=== PATIENT | female | born 1935 | race Caucasian/White ===

== ENCOUNTER 2019-05-16 13:54 | Inpatient (IN) | payer OTHER ==
[2019-05-16] VITALS (26 sets, daily range): BP systolic 81–107; BP diastolic 33–57
[~2019-05-16] VITALS: Ht 154.9 cm; Wt 60.0 kg
[2019-05-16] MEDS ORDERED: FUROSEMIDE 40 MG/4 ML VIAL IV ONE (14:30)
[2019-05-16 14:34] LABS: Basophils # (auto) 0.1 uL; Eosinophils # (auto) 0 uL; Hematocrit 15.3 % (36.0-46.0); Lymphocytes # (auto) 0.5 uL; Lymphocytes % (auto) 5.1 % (10.0-50.0); Mean Corpuscular Volume 98.8 fL (80.0-100.0); Red Blood Cells 1.55 10^6/uL (4.0-5.20)
[2019-05-16 14:36] LABS: Basophils % (auto) 1.3 % (0.0-2.0); Eosinophils % (auto) 0.4 % (0.0-7.0); Mean Corpuscular Hemoglobin 32.8 pg (28.0-32.0); Mean Corpuscular Hgb Conc. 33.2 g/dL (32.0-36.0); Monocytes # (auto) 0.7 uL; Monocytes % (auto) 7.4 % (0.0-12.0); Neutrophils % (auto) 85.8 % (37.0-80.0); Nucleated Red Blood Cells % 0.1 %; Platelet Count (auto) 112 10^3/uL (140-450); Red Cell Distribution Width 17.9 % (11.8-14.3); White Blood Cell 9.3 10^3/uL (4.4-10.8)
[2019-05-16 14:51] LABS: Albumin 1.7 g/dL (3.4-5.0); BUN/Creatinine Ratio 15.1; Calcium 6.7 mg/dL (8.5-10.1); Potassium 3.9 mmol/L (3.5-5.1)
[2019-05-16 14:55] LABS: Bilirubin, Total 1.3 mg/dL (0.2-1.0); Total Protein 5.2 g/dL (6.4-8.2)
[2019-05-16] MEDS ORDERED: SODIUM CHLORIDE 0.9% 250 ML IV ONE (15:00)
[2019-05-16 15:04] LABS: Hemoglobin 5.1 g/dL (12.2-16.2)
[2019-05-16] MEDS ORDERED: PANTOPRAZOLE 40 MG/10 ML VIAL INJ IV ONE (15:15)
[2019-05-16] MEDS ORDERED: FURO1TAB33 PO (15:58)
[2019-05-16] MEDS ORDERED: LISI2.5T47 PO (15:58)
[2019-05-16] MEDS ORDERED: ROSU5TAB5 PO (15:58)
[2019-05-16] MEDS ORDERED: DIGO0.1262 PO (15:58)
[2019-05-16] MEDS ORDERED: FERR27TA2 PO (15:58)
[2019-05-16] MEDS ORDERED: CARV3.1240 PO (15:58)
[2019-05-16 16:08] LABS: Lactic Acid w/Reflex 3.8 mmol/L (0.4-2.0)
[2019-05-16] MEDS ORDERED: traMADol HCL 50 MG TAB PO PRN (16:15)
[2019-05-16] MEDS ORDERED: ONDANSETRON HCL 4 MG/2 ML VIAL IV PRN (16:15)
[2019-05-16] MEDS ORDERED: MORPHINE SULF INJ 2 MG/ML SYRINGE 1ML IV PRN (16:15)
[2019-05-16] MEDS ORDERED: NITROGLYCERIN 0.4 MG SL TAB SL PRN (16:15)
[2019-05-16] MEDS ORDERED: ACETAMINOPHEN 500 MG TAB PO PRN (16:15)
[2019-05-16 16:49] LABS: INR 1.46 (0.9-1.15); Partial Thromboplastin Time 33.1 sec (23.64-32.05)
[2019-05-16 17:00] LABS: CRP High Sensitivity 1.03 mg/dL (< 0.3)
[2019-05-16] MEDS: NOREPINEPHRINE 8 MG/250ML KIT 250 ML IV SCH (17:01)
--- NOTE | 2019-05-16 17:30 | NUR ---
Pt being admitted to ICU CAROLINE MONTGOMERY admitted to ICU via gurney on nurse monitoring, and portable 02. Patient transfered to bed, connected to ICU monitoring and oxygen AT 2L PER NC, and weighed by bedscale. Patient oriented to Shivani au RN, unit, room, bed, and unit policies regarding patient care and visiting hours. All questions and concerns addressed, patient verbalized understanding. NOTE:
--- NOTE | 2019-05-16 18:30 | NUR ---
MULTIPLE UNSUCCESSFUL ATTEMPTS TO START PERIPHERAL IV'S FOR BLOOD TRANSFUSION. ER CALLED - STATES WILL COME AND START EJ IV LINE. PATIENT'S DAUGHTERS AT BEDSIDE - INFORMED OF ABOVE - VERBALIZED UNDERSTANDING.
--- NOTE | 2019-05-16 19:00 | NUR ---
REPORT GIVEN TO PRASHANT CAPELLAN.
[2019-05-16 19:04] LABS: Hematocrit 15.8 % (36.0-46.0)
[2019-05-16 19:15] LABS: Hemoglobin 5.2 g/dL (12.2-16.2)
--- NOTE | 2019-05-16 19:33 | NUR ---
INITIAL CONTACT ASSUMED CARE OF PATIENT PATIENT APPEARS TO BE RESTING IN BED COMFORTABLY IN SUPINE POSITION AT THIS TIME. AAOX4, VITAL SIGNS SHOW HYPOTENSION AT THIS TIME, PATIENT IS ON LEVOPHED. SEE IV SPREADSHEET FOR MEDICATIONS AND TITRATION. NO S/S OF DISTRESS NOTED. PATIENT DENIES PAIN AT THIS TIME. SKIN INTACT. 2 L O2 VIA NASAL CANNULA, PATIENT O2 SAT 100%. ER NURSES AT BEDSIDE FOR EJ PLACEMENT. 20 G IV LEFT A/C PATENT, SKIN INTACT. PLAN OF CARE DISCUSSED WITH PATIENT, PATIENT VERBALIZED UNDERSTANDING, SAFETY MAINTAINED, WILL CONTINUE TO MONITOR.
--- NOTE | 2019-05-16 20:15 | NUR ---
FAMILY AT BEDSIDE
--- NOTE | 2019-05-16 21:20 | NUR ---
COHU CATHETER INSERTION 16 F CHOU CATHETER SUCCESSFULLY INSERTED 35 CC URINE OUTPUT, STRAW COLORED, CLOUDY, SEDIMENTS, 35 CC URINE OUT PUT
--- NOTE | 2019-05-16 21:40 | NUR ---
URINE SAMPLE SENT TO LAB
[2019-05-16] MEDS: ATORVASTATIN 20 MG TAB PO SCH (22:45)
[2019-05-16] MEDS: CEFOTETAN 1GM/D5W 50ML BAG 50 ML IV SCH (22:45)
[2019-05-16] MEDS: PANTOPRAZOLE 40 MG TAB PO SCH (22:45)
--- NOTE | 2019-05-16 23:00 | NUR ---
rounding Patient resting in bed in supine position satting 100% on 2L O2. no S/S of distress noted. will continue to monitor
[2019-05-17] VITALS (93 sets, daily range): BP systolic 71–141; BP diastolic 35–88
--- NOTE | 2019-05-17 | NUR ---
Patient Refused Bath Patient resting at this time, refusing bath communicates that she would rather take the time to sleep
[2019-05-17 01:00] LABS: Hemoglobin 8.2 g/dL (12.2-16.2)
[2019-05-17 01:02] LABS: Hematocrit 24.5 % (36.0-46.0)
[2019-05-17] MEDS: DOPamine 1600MCG/ML D5W 250 ML IV SCH (02:00)
[2019-05-17 04:29] LABS: Basophils # (auto) 0 uL; Basophils % (auto) 0.1 % (0.0-2.0); Eosinophils # (auto) 0.1 uL; Eosinophils % (auto) 0.3 % (0.0-7.0); Hematocrit 24.3 % (36.0-46.0); Hemoglobin 8.1 g/dL (12.2-16.2); Lymphocytes # (auto) 0.9 uL; Mean Corpuscular Hemoglobin 31.4 pg (28.0-32.0); Mean Corpuscular Hgb Conc. 33.2 g/dL (32.0-36.0); Mean Corpuscular Volume 94.7 fL (80.0-100.0); Monocytes # (auto) 1.4 uL; Monocytes % (auto) 7.6 % (0.0-12.0); Neutrophils # (auto) 15.9 uL; Platelet Count (auto) 135 10^3/uL (140-450); Red Blood Cells 2.56 10^6/uL (4.0-5.20); Red Cell Distribution Width 16.2 % (11.8-14.3); White Blood Cell 18.2 10^3/uL (4.4-10.8)
[2019-05-17 04:42] LABS: Albumin 2.1 g/dL (3.4-5.0); Calcium 6.7 mg/dL (8.5-10.1); Potassium 4.1 mmol/L (3.5-5.1)
[2019-05-17 04:45] LABS: Bilirubin, Total 2.5 mg/dL (0.2-1.0); Total Protein 5.8 g/dL (6.4-8.2)
[2019-05-17] MEDS: CEFOTETAN 1GM/D5W 50ML BAG 50 ML IV SCH (06:53)
[2019-05-17] MEDS: NOREPINEPHRINE 8 MG/250ML KIT 250 ML IV SCH (06:54)
--- NOTE | 2019-05-17 08:30 | NUR ---
PATIENT'S DAUGHTER AT BEDSIDE - UPDATED ON PATIENT CONDITION THROUGHOUT HS - VERBALIZED UNDERSTANDING.
--- NOTE | 2019-05-17 09:15 | NUR ---
LAB STATES HAS NO UA - ANOTHER UA SENT TO LAB
[2019-05-17 09:45] LABS: Urine Amorphous Crystal FEW /hpf (None Seen); Urine Bacteria FEW /hpf (None Seen); Urine Blood 2+ /uL (Negative); Urine Hyaline Cast MOD /lpf (0 - 2); Urine Specific Gravity 1.008 (1.001-1.035); Urine WBC 3 /hpf (0 - 5)
[2019-05-17] MEDS: PANTOPRAZOLE 40 MG TAB PO SCH (09:56)
[2019-05-17] MEDS: FUROSEMIDE 40 MG/4 ML VIAL IV SCH (09:56)
[2019-05-17] MEDS: DIGOXIN 0.125 MG TAB PO SCH (09:57)
--- NOTE | 2019-05-17 10:20 | NUR ---
DR Joaquin COOMBS RETURNS CALL RE: CONSULT - GIVEN PATIENT ALL INFO AND CURRENT CONDITION - ORDERS RECEIVED.
--- NOTE | 2019-05-17 10:30 | NUR ---
CONSENTS FOR EGD ET MOD SEDATION SIGNED PER PATIENT. Signed: 05/17/19 at 1206 by Shivani Mansfield RN
--- NOTE | 2019-05-17 11:50 | NUR ---
DR GROSS NOTIFIED OF GRAM WALTER RODS IN BLOOD CULTURE, WBC 18.2 - STATES WILL COME SEE PATIENT IN APPROX 30 MIN.
[2019-05-17] MEDS ORDERED: VANCOMYCIN 1GM/250ML 250 ML IV ONE (12:45)
[2019-05-17] MEDS ORDERED: cefTRIAXone 1GM/50ML D5W 50 ML IV ONE (12:45)
[2019-05-17] MEDS ORDERED: VANCOMYCIN PER PHARMACY 0 MG IV SCH (12:45)
--- NOTE | 2019-05-17 13:01 | NUR ---
DR GROSS VISITS ET EXAMINEES PATIENT - NEW ORDERS RECEIVED.
[2019-05-17] MEDS ORDERED: LIDOCAINE 1% (LOCAL ANESTH.) PF 5ml SDV ID ONE (15:45)
--- NOTE | 2019-05-17 16:00 | NUR ---
DR PATEL VISITS - AEROSPACE MEDICINE PHYSICIAN INFORMED HIM OF PATIENT CONDITION AND NEED FOR CARDIAC CLEARANCE FOR EGD SCHEDULED FOR TOMORROW.
[2019-05-17 16:12] LABS: Hematocrit 22.9 % (36.0-46.0); Hemoglobin 7.7 g/dL (12.2-16.2)
--- NOTE | 2019-05-17 16:26 | NUR ---
PICC line placement Patient/Patient significant other educated on need for PICC line placement. All risks and benefits explained and all questions and concerns addressed prior to procedure. Noted past medical history and allergies with no contraindications. INR and Plt counts within acceptable range. 6 fr PICC line inserted via right basilic vein using [employer] US and Tip Location System. Sterile technique with maximum barrier precautions utilized. Blood return obtained from each of triple lumens and each flushed easily with NS using proper technique. PICC secured with Stat-lock; biodisc and occlusive dressing applied. Stat portable chest x-ray obtained for PICC tip placement. *Baseline Arm Circumference 24.
--- NOTE | 2019-05-17 16:29 | NUR ---
OK to use PICC line Xray completed. OK to use PICC line by Dr Mancuso.
--- NOTE | 2019-05-17 16:50 | NUR ---
RT ARM PICC LINE WITH MILD BLEEDING NOTED AT SITE AND UNDER DRESSING - NAUTICAL INSTRUMENT MECHANIC -REINFORCED DRESSING, ELEVATED EXTREMITY ON PILLOW ET 1 LITER IV BAG APPLIED FOR PRESSURE, WILL CONTINUE TO MONITOR.
--- NOTE | 2019-05-17 17:45 | NUR ---
NO FURTHER BLEEDING NOTED AT PICC LINE SITE - LITER IVF ACTING SAND BAG REMOVED. - WILL CONTINUE TO MONITOR.
--- NOTE | 2019-05-17 19:37 | NUR ---
INITIAL CONTACT ASSUMED CARE OF PATIENT PATIENT APPEARS TO BE RESTING IN BED COMFORTABLY IN SEMI-FOWLERS POSITION EATING DINNER AT THIS TIME. AAOX4, VITAL SIGNS WITHIN NORMAL LIMITS. NO S/S OF DISTRESS NOTED. PATIENT DENIES PAIN AT THIS TIME. CHOU CATHETER IN TACT AND DRAINING TO GRAVITY. CENTRAL LINE RIGHT IJ INTACT, ALL PORTS FLUSHABLE, NO S/S OF INFILTRATION OR PHLEBITIS. 2 L O2 VIA NASAL CANNULA SATING 100%. PLAN OF CARE DISCUSSED WITH PATIENT, PATIENT VERBALIZED UNDERSTANDING. SAFETY MAINTAINED, WILL CONTINUE TO MONITOR
--- NOTE | 2019-05-17 20:20 | NUR ---
NO VISITORS IN LOBBY FOR PATIENT AT THIS TIME
--- NOTE | 2019-05-17 21:32 | NUR ---
Patient Refused Bath Patient resting at this time, refusing bath communicates that she would rather take the time to sleep
--- NOTE | 2019-05-17 21:38 | NUR ---
[facility] CALLED 2 UNITS PRBC'S AVAILABLE
[2019-05-17] MEDS: PANTOPRAZOLE 40 MG/10 ML VIAL INJ IV SCH (22:00)
[2019-05-17] MEDS: SODIUM CHLOR 0.9% PF (SALINE LOCK) 10ML VIAL/SYR IV SCH (22:05)
[2019-05-17] MEDS: ATORVASTATIN 20 MG TAB PO SCH (22:35)
[2019-05-18] VITALS (94 sets, daily range): BP systolic 77–147; BP diastolic 30–92
[2019-05-18] MEDS: DOPamine 1600MCG/ML D5W 250 ML IV SCH ×2 (01:04→10:56)
--- NOTE | 2019-05-18 04:00 | NUR ---
[facility] [employer] SECOND UNIT OF PRBC'S STARTED 0115 TRANSFUSED AT THIS TIME (0400), NO S/S OF DISTRESS NOTED, PATIENT TOLERATED WELL UNABLE TRO DOCUMENT ON BLOOD TRANSFUSION SPREADSHEET
[2019-05-18 04:06] LABS: Basophils # (auto) 0 uL; Basophils % (auto) 0.3 % (0.0-2.0); Eosinophils # (auto) 0.3 uL; Eosinophils % (auto) 2.3 % (0.0-7.0); Hematocrit 28.6 % (36.0-46.0); Hemoglobin 9.9 g/dL (12.2-16.2); Lymphocytes # (auto) 1.2 uL; Lymphocytes % (auto) 8.6 % (10.0-50.0); Mean Corpuscular Hemoglobin 31.4 pg (28.0-32.0); Mean Corpuscular Hgb Conc. 34.7 g/dL (32.0-36.0); Mean Corpuscular Volume 90.4 fL (80.0-100.0); Monocytes # (auto) 1.4 uL; Monocytes % (auto) 10.1 % (0.0-12.0); Neutrophils # (auto) 10.9 uL; Neutrophils % (auto) 78.7 % (37.0-80.0); Platelet Count (auto) 117 10^3/uL (140-450); Red Blood Cells 3.17 10^6/uL (4.0-5.20); White Blood Cell 13.8 10^3/uL (4.4-10.8)
[2019-05-18 04:45] LABS: Potassium 3.6 mmol/L (3.5-5.1)
[2019-05-18 04:54] LABS: Albumin 1.9 g/dL (3.4-5.0); BUN/Creatinine Ratio 16.4; Bilirubin, Total 2.6 mg/dL (0.2-1.0); Calcium 6.6 mg/dL (8.5-10.1); Total Protein 5.7 g/dL (6.4-8.2)
[2019-05-18] MEDS: NOREPINEPHRINE 8 MG/250ML KIT 250 ML IV SCH (06:00)
--- NOTE | 2019-05-18 07:30 | NUR ---
RECEIVED REPORT FROM PRASHANT - ASSUMED CARE OF PATIENT.
--- NOTE | 2019-05-18 07:46 | NUR ---
DR GROSS VISITS - NO NEW ORDERS RECEIVED.
[2019-05-18] MEDS: cefTRIAXone 1GM/50ML D5W 50 ML IV SCH (09:28)
--- NOTE | 2019-05-18 09:56 | NUR ---
I faxed clinical information to [facility] including today's MD progress notes, current xrays, labs, vitals and medication list.
--- NOTE | 2019-05-18 10:15 | NUR ---
DR BORDEN NOTIFIED OF GI CONSULT - UPDATED ON PATIENT CURRENT CONDITION - STATES WILL COME SEE PATIENT TODAY- ORCHESTRA CONDUCTOR INFORMED PATIENT'S DAUGHTER ET PATIENT - BOTH VERBALIZED UNDERSTANDING.
[2019-05-18] MEDS: DIGOXIN 0.125 MG TAB PO SCH (10:20)
[2019-05-18] MEDS: FUROSEMIDE 40 MG/4 ML VIAL IV SCH (10:20)
[2019-05-18] MEDS: PANTOPRAZOLE 40 MG/10 ML VIAL INJ IV SCH ×2 (10:28→22:00)
[2019-05-18] MEDS: VANCOMYCIN 1GM/250ML 250 ML IV SCH (10:28)
[2019-05-18] MEDS: SODIUM CHLOR 0.9% PF (SALINE LOCK) 10ML VIAL/SYR IV SCH ×2 (10:28→22:37)
--- NOTE | 2019-05-18 11:15 | NUR ---
[employer] - UPDATED ON PATIENT CONDITION.
--- NOTE | 2019-05-18 13:15 | NUR ---
PICC LINE SITE WITH SM AMT SEROSANG DRNG NOTED - ELEVATED EXTREMITY AND APPLIED 1L BAG IVF TO ACT SAND BAG.
--- NOTE | 2019-05-18 13:20 | NUR ---
DR BORDEN VISITS ET EXAMINES PATIENT - NO ORDERS RECEIVED.
--- NOTE | 2019-05-18 15:00 | NUR ---
RIGHT ARM PICC LINE INCREASED WITH SEROSANG DRNG. - PICC DRSG REMOVED -SURGICEL GAUZE APPLIED WITH NEW PICC LINE DRSG - WILL CONTINUE TO MONITOR.
--- NOTE | 2019-05-18 15:10 | NUR ---
DR BORDEN NOTIFIED OF PATIENT'S DECISION TO PROCEED WITH COLONOSCOPY TOMORROW - ORDERS RECEIVED.
[2019-05-18 15:44] LABS: Hematocrit 30.8 % (36.0-46.0); Hemoglobin 10.6 g/dL (12.2-16.2)
[2019-05-18] MEDS: GOLYTELY 4L KIT PO ONE ×2 (18:50→18:52)
--- NOTE | 2019-05-18 19:27 | NUR ---
INITIAL CONTACT ASSUMED CARE OF PATIENT PATIENT APPEARS TO BE SITTING IN BED IN HIGH FOWLERS POSITION EATING DINNER AT THIS TIME. AAOX4, VITAL SIGNS WITHIN NORMAL LIMITS. NO S/S OF DISTRESS NOTED, PATIENT DENIES PAIN AT THIS TIME. CHOU CATHETER IN TACT AND DRAINING TO GRAVITY, RIGHT UPPER ARM PICC LINE IN TACT WITH NO S/S OF PHLEBITIS OR INFILTRATION. PLAN OF CARE DISCUSSED WITH PATIENT, PATIENT VERBALIZED UNDERSTANDING. SAFETY MAINTAINED, WILL CONTINUE TO MONITOR.
--- NOTE | 2019-05-18 20:00 | NUR ---
Patient bathe/linen change Patient given complete bath. Skin integrity assessed for any changes. Linens changed. Patient repositioned for comfort. Gown change, skin lotion and z-guard applied. Patient tolerated well. Safety maintained, will continue to monitor
--- NOTE | 2019-05-18 21:00 | NUR ---
DAUGHTER AT BEDSIDE DAUGHTER ALYSSA AT BEDSIDE
--- NOTE | 2019-05-18 22:00 | NUR ---
BESIDE COMMODE PLACED IN PATIENT ROOM
--- NOTE | 2019-05-18 22:13 | NUR ---
BEDSIDE COMMODE PATIENT ASSISTED ON TO THE BEDSIDE COMMODE PATIENT TOOK TWO STEPS WITH ASSISTANCE, TOLERATED WELL
--- NOTE | 2019-05-18 22:33 | NUR ---
BM PATIENT HAD MED SIZED BLACK IN COLOR SOFT STOOL PATIENT CLEANED WITH WASH CLOTH, SOAP, WARM WATER PATIENT ASSISTED BACK TO BED PATIENT REQUESTING TO SIT UP IN BED, OFFERED RECLINER CHAIR TO PATIENT
--- NOTE | 2019-05-18 22:50 | NUR ---
RECLINER PLACED IN PATIENTS ROOM RECLINER AT BEDSIDE, DRAPED WITH LINEKAROLINA/KARY PATIENT ASSISTED TO RECLINER PATIENT TOLERATED WELL
[2019-05-18] MEDS: ATORVASTATIN 20 MG TAB PO SCH (23:16)
[2019-05-19] VITALS (94 sets, daily range): BP systolic 68–145; BP diastolic 33–105
--- NOTE | 2019-05-19 00:30 | NUR ---
PATIENT STATUS PATIENT ASSISTED FROM THE CHAIR TO BED PATIENT TOLERATED WELL
[2019-05-19 03:51] LABS: Basophils # (auto) 0.1 uL; Basophils % (auto) 0.8 % (0.0-2.0); Eosinophils # (auto) 0.2 uL; Eosinophils % (auto) 3.2 % (0.0-7.0); Hematocrit 30.5 % (36.0-46.0); Hemoglobin 10.6 g/dL (12.2-16.2); Lymphocytes # (auto) 0.8 uL; Mean Corpuscular Hgb Conc. 34.6 g/dL (32.0-36.0); Mean Corpuscular Volume 89.5 fL (80.0-100.0); Monocytes # (auto) 0.8 uL; Monocytes % (auto) 10.4 % (0.0-12.0); Neutrophils % (auto) 75.6 % (37.0-80.0); Nucleated Red Blood Cells % 0.2 %; Platelet Count (auto) 95 10^3/uL (140-450); Red Blood Cells 3.41 10^6/uL (4.0-5.20); Red Cell Distribution Width 16.4 % (11.8-14.3); White Blood Cell 7.9 10^3/uL (4.4-10.8)
[2019-05-19 04:19] LABS: Albumin 1.6 g/dL (3.4-5.0); Calcium 6.8 mg/dL (8.5-10.1); Potassium 3.3 mmol/L (3.5-5.1)
[2019-05-19 04:22] LABS: BUN/Creatinine Ratio 14.6; Bilirubin, Total 2.3 mg/dL (0.2-1.0); Total Protein 5.4 g/dL (6.4-8.2)
[2019-05-19] MEDS ORDERED: GOLYTELY 4L KIT PO ONE (06:00)
--- NOTE | 2019-05-19 08:13 | NUR ---
Resumed care at 0700. Orders reviewed and ongoing assessments being done. Being treated for multiple problems. Alert and interacting appropriately and can use the call light to make needs known. Colonoscopy scheduled for today. Reviewed plan of care and all questions answered. Maintaining NPO and GoLYTELY initiated on prior shift. Assisted to BSC, (standby) moves slowly with no complaints. Dr. Agata Fan was in at 0800 to round. Discussed condition and reviewed plan of care. Remains of Levophed and Dopamine for hemodynamic stability, will titrate as appropriate.
[2019-05-19] MEDS ORDERED: POTASSIUM CHL 20 Meq TABLET PO ONE (09:00)
[2019-05-19] MEDS: cefTRIAXone 1GM/50ML D5W 50 ML IV SCH (09:16)
[2019-05-19] MEDS: DIGOXIN 0.125 MG TAB PO SCH (09:16)
[2019-05-19] MEDS ORDERED: EPINEPHrine HCL 1 MG/10 ML SYRG ONE (09:19)
--- NOTE | 2019-05-19 09:19 | NUR ---
assessment Patients post discharge needs to be determined prior to discharge. Addendum: 05/22/19 at 0919 by Pily RODRIGUEZ Amended: Links added.
--- NOTE | 2019-05-19 10:01 | NUR ---
PICC line inserted to right upper arm on 05-17-19. Noted arm and hand swollen compared to left arm. Per patient arm had not been swollen. Upon shift change Lana CAPELLAN reported that PICC site was leaking and causing some pain and had been hot to touch. Stopped all infusions. Spoke with Mayuri CAPELLAN (PICC line nurse) and made her aware of above. She will come and investigate later today. Did make Dr. Fan aware, ordered US to rule out DVT. Arm and hand is warm to touch and sensitive to touch. Reviewed procedure.
[2019-05-19] MEDS: SODIUM CHLOR 0.9% PF (SALINE LOCK) 10ML VIAL/SYR IV SCH ×2 (10:07→22:33)
[2019-05-19] MEDS: FUROSEMIDE 40 MG/4 ML VIAL IV SCH (10:12)
[2019-05-19] MEDS: VANCOMYCIN 1GM/250ML 250 ML IV SCH (10:19)
--- NOTE | 2019-05-19 10:56 | NUR ---
Mayuri CAPELLAN (PICC line nurse) at bedside.
[2019-05-19] MEDS: PANTOPRAZOLE 40 MG/10 ML VIAL INJ IV SCH ×2 (11:00→22:33)
[2019-05-19] MEDS ORDERED: MIDAZOLAM HCL 5 MG/ML-1ML VIAL ONE (11:15)
[2019-05-19] MEDS ORDERED: SODIUM CHLORIDE LOCK 10 ML ONE (11:15)
[2019-05-19] MEDS ORDERED: diphenhdrAMINE HCL 50 MG/1 ML VL ONE (11:16)
[2019-05-19] MEDS ORDERED: fentaNYL CITRATE 100 MCG/2 ML VL ONE (11:16)
--- NOTE | 2019-05-19 12:05 | NUR ---
Dr. Carr, assistant women's soccer coach and GI team at bedside at 1145 for colonoscopy, in progress.
--- NOTE | 2019-05-19 15:22 | NUR ---
Nutrition Assessment Notes please see attached link for complete assessment Est. Needs BW (57 kg): 8589-3243 kcal (25-30 kcal/kgBW), 57-74 gms pro (1.0-1.3 gms/kgBW r/t severe hypoalb). Will continue to monitor pertinent labs and reassess nutrient need prn Addendum: 05/19/19 at [address] Amended: Links added.
--- NOTE | 2019-05-19 15:25 | NUR ---
Colonoscopy completed at 1225. Report received from Dr. Carr and Pau CAPELLAN. Post moderate sedation care done. Is now alert and interacting appropriately. Per Dr. Carr, no active bleeding. Has had one bowel movement post procedure, no blood noted. Still loose light brown. Can have a clear liquid diet. Eating Jello and drinking juice for now. Received phone call at [address] Ted Nguyen, radiologist. US venous right upper extremity impression: Positive for DVT with partially occlusive thrombus within the right axillary and right brachial veins. Notified Dr. Agata Fan and ordered to remove PICC line and may insert a midline to left arm. Discussed case with Mayuri CAPELLAN (PICC line RN). Explained finding, daughter at bedside. All questions answered. Right upper arm with bruising and sensitive to touch and noted fluid collection in tissue with weeping. Spoke with Senia at 1409, [place] welding equipment sales representative. Updated on current condition. Dr. Cruz, windows vmware engineer in unit. Made him aware of her labile BP and drop in HR 45-47 when Dopamine was weaned off. Levophed and Dopamine, titrating as appropriate. Dr. Cruz discussed possible need for PPM in the future and mentioned Sick Sinus Syndrome.
[2019-05-19] MEDS: DOPamine 1600MCG/ML D5W 250 ML IV SCH (16:29)
[2019-05-19] MEDS: NOREPINEPHRINE 8 MG/250ML KIT 250 ML IV SCH (16:40)
--- NOTE | 2019-05-19 18:05 | NUR ---
PICC line removal PICC line DC'd with clean sterile technique, catheter fully intact. Pressure dressing applied to site. Patient tolerated well.
--- NOTE | 2019-05-19 18:12 | NUR ---
Midline Placement Patient educated on need for midline placement. All risks and benefits explained and all questions and concerns addresses prior to procedure. 18g/10cm midline inserted via left brachial vein using Ultrasound. Sterile technique utilized. Blood return obtained from single lumen and flushed easily with NS using proper technique. Midline secured with saline lock; biodisc and occlusive dressing applied. Primary RN notified. Midline lot #[id number].
--- NOTE | 2019-05-19 18:34 | NUR ---
Remains sleepy but easily awakens and is appropriate. In no acute distress. Unable to wean off vasopressors. Continuing to titrate Levophed and Dopamine for hemodynamic stability.
--- NOTE | 2019-05-19 19:31 | NUR ---
INITIAL CONTACT ASSUMED CARE OF PATIENT PATIENT APPEARS TO BE SITTING UP IN BED IN HIGH FOWLERS POSITION EATING DINNER AT THIS TIME DAUGHTER AT BEDSIDE ASSISTING PATIENT PATIENT IS AAAOX4, VITAL SIGNS WITHIN NORMAL LIMITS, NO S/S OF DISTRESS NOTED PATIENT DENIES PAIN CHOU CATHETER IN TACT AND DRAINING TO GRAVITY, NOTED PICC LINE TO LEFT UPPER ARM IN TACT W/NO S/S OF PHLEBITIS OR INFILTRATION. PLAN OF CARE DISCUSSED WITH PATIENT AND FAMILY, BOTH PARTIES VERBALIZED UNDERSTANDING. SAFETY MAINTAINED, WILL CONTINUE TO MONITOR
--- NOTE | 2019-05-19 19:55 | NUR ---
DAUGHTER LEFT THE UNIT FOR THE EVENING
[2019-05-19] MEDS: ATORVASTATIN 20 MG TAB PO SCH (22:33)
[2019-05-20] VITALS (96 sets, daily range): BP systolic 0–152; BP diastolic 0–100
[2019-05-20 04:46] LABS: Albumin 1.7 g/dL (3.4-5.0); Basophils # (auto) 0.1 uL; Basophils % (auto) 0.9 % (0.0-2.0); Calcium 7.1 mg/dL (8.5-10.1); Eosinophils # (auto) 0.3 uL; Eosinophils % (auto) 4.2 % (0.0-7.0); Hematocrit 34.5 % (36.0-46.0); Hemoglobin 11.8 g/dL (12.2-16.2); Lymphocytes # (auto) 1.1 uL; Lymphocytes % (auto) 13.2 % (10.0-50.0); Mean Corpuscular Hgb Conc. 34.4 g/dL (32.0-36.0); Mean Corpuscular Volume 90.2 fL (80.0-100.0); Monocytes # (auto) 1.1 uL; Monocytes % (auto) 13.9 % (0.0-12.0); Neutrophils # (auto) 5.5 uL; Neutrophils % (auto) 67.8 % (37.0-80.0); Nucleated Red Blood Cells % 0.1 %; Platelet Count (auto) 103 10^3/uL (140-450); Potassium 3.7 mmol/L (3.5-5.1); Red Blood Cells 3.82 10^6/uL (4.0-5.20); Red Cell Distribution Width 16.5 % (11.8-14.3); White Blood Cell 8.1 10^3/uL (4.4-10.8)
[2019-05-20 04:51] LABS: BUN/Creatinine Ratio 11.6; Bilirubin, Total 1.7 mg/dL (0.2-1.0); Total Protein 5.8 g/dL (6.4-8.2)
--- NOTE | 2019-05-20 07:05 | NUR ---
OPENING NOTE RECEIVED REPORT AND ASSUMED CARE OF PT FROM PRASHANT CAPELLAN
[2019-05-20] MEDS: NOREPINEPHRINE 8 MG/250ML KIT 250 ML IV SCH ×2 (08:43→23:32)
--- NOTE | 2019-05-20 09:30 | NUR ---
BM ASSISTED PT TO COMMODE. PT HAD SMALL BLACK SMEAR STOOL.
[2019-05-20] MEDS: VANCOMYCIN 1GM/250ML 250 ML IV SCH (09:45)
[2019-05-20] MEDS: DIGOXIN 0.125 MG TAB PO SCH (09:46)
[2019-05-20] MEDS: FUROSEMIDE 40 MG/4 ML VIAL IV SCH (09:47)
[2019-05-20] MEDS: PANTOPRAZOLE 40 MG/10 ML VIAL INJ IV SCH ×2 (09:54→22:06)
[2019-05-20] MEDS: SODIUM CHLOR 0.9% PF (SALINE LOCK) 10ML VIAL/SYR IV SCH ×2 (09:55→22:06)
--- NOTE | 2019-05-20 09:57 | NUR ---
I faxed transfer order to [facility] (ATTN Department Secretary Dameon) along with transfer summary, current MD progress notes, labs, vitals, xrays and medication list. I called [facility] and spoke with windows security analyst Dalia, she said she would have case assembler Dameon give me a call.
[2019-05-20] MEDS ORDERED: CEFTRIAXONE SODIUM 2 GM in D5W 5% 50 ML IV SCH (10:00)
[2019-05-20] MEDS: FLUCONAZOLE 100 MG TAB PO SCH (10:16)
--- NOTE | 2019-05-20 10:45 | NUR ---
RECEIVED CALL FROM [facility] SPOKE WITH [facility] SOLORZ[facility] NOT ABLE TO ACCEPT FOR TRANSFER OF PT BEING UNSTABLE DUE TO BEING ON TWO DRIPS: DOPAMINE AND LEVOPHED. STATES WILL SPEAK TO OUR NATURAL RESOURCES TECHNICIAN SCOTT
--- NOTE | 2019-05-20 12:16 | NUR ---
DR. BORDEN AT BEDSIDE SPOKE WITH PT. PT VERBALIZES UNDERSTANDING OF PLAN. WILL CONTINUE TO MONITOR
--- NOTE | 2019-05-20 15:00 | NUR ---
SPOKE WITH SCOTT FROM CASE MANAGEMENT ADVISED OF COMMUNICATION WITH [facility] FROM [facility] AND NOT BEING ABLE TO TRANSPORT PATIENT DUE TO BEING UNSTABLE ON TWO DRIPS. SCOTT STATES SHE WILL CONTACT MARCY FROM [facility] TO GET AUTHORIZATION TO STAY AT OUR FACILITY
--- NOTE | 2019-05-20 15:18 | NUR ---
I spoke with [facility] Sas Sql Developer Dameon [phone]-he said that due to patient being on 2 vasopressors they are not stable for transfer to [facility]-he will have authorization faxed to us for continued stay.
--- NOTE | 2019-05-20 19:00 | NUR ---
SPOKE WITH DR. PARRY REGARDING PT HEART RATE. WILL COME UP TO LOOK AT HER. EKG DONE. PLACED IN CHART
--- NOTE | 2019-05-20 19:00 | NUR ---
CLOSING NOTE SHIFT REPORT GIVEN AND CARE ENDORSED TO ROSIO CAPELLAN
--- NOTE | 2019-05-20 19:30 | NUR ---
Opening Shift Note Received report from day shift RN. Family at bedside. All questions and concerns addressed. Pt sitting up in bed eating dinner. Alert and oriented times four. Full assessment done, see interventions. Right EJ IV discontinued, IV not intact or patent; Site leaking. Pt tolerated well. Levophed gtt infusing through left midline and dopamine gtt. see iv spreadsheet for details. Skin intact. Pt able to move herself in bed and up to commode with assistance. Man catheter in place secured blow bladder, patent and draining to gravity, free of kinks. Pt denies pain at this time. Bed locked in lowest position, Side rails up x2. Call light within reach. Pt verbalized understanding to call for assistance. Pt in full view of RN.
--- NOTE | 2019-05-20 22:00 | NUR ---
Notified DR. Cruz of pt and family's request to have pacemaker insertion done here at [facility] and not at [facility]. Anthony Aware and stated he will see what he can do. Per director of casework department notes, [facility] authorized extended stay here.
[2019-05-20] MEDS: ATORVASTATIN 20 MG TAB PO SCH (22:06)
[2019-05-20] MEDS: DOPamine 1600MCG/ML D5W 250 ML IV SCH (23:01)
[2019-05-21] VITALS (91 sets, daily range): BP systolic 75–131; BP diastolic 36–73
[2019-05-21 04:00] LABS: Basophils # (auto) 0.1 uL; Basophils % (auto) 1.4 % (0.0-2.0); Eosinophils # (auto) 0.3 uL; Eosinophils % (auto) 4.2 % (0.0-7.0); Hematocrit 35.7 % (36.0-46.0); Hemoglobin 12.4 g/dL (12.2-16.2); Lymphocytes # (auto) 1.2 uL; Lymphocytes % (auto) 16.5 % (10.0-50.0); Mean Corpuscular Hemoglobin 31.2 pg (28.0-32.0); Mean Corpuscular Hgb Conc. 34.8 g/dL (32.0-36.0); Mean Corpuscular Volume 89.7 fL (80.0-100.0); Monocytes % (auto) 14.1 % (0.0-12.0); Neutrophils # (auto) 4.6 uL; Neutrophils % (auto) 63.8 % (37.0-80.0); Nucleated Red Blood Cells % 0.2 %; Platelet Count (auto) 96 10^3/uL (140-450); Red Blood Cells 3.98 10^6/uL (4.0-5.20); Red Cell Distribution Width 16.1 % (11.8-14.3); White Blood Cell 7.2 10^3/uL (4.4-10.8)
[2019-05-21 04:22] LABS: Albumin 1.7 g/dL (3.4-5.0); BUN/Creatinine Ratio 10.6; Calcium 7.2 mg/dL (8.5-10.1); Potassium 3.8 mmol/L (3.5-5.1)
[2019-05-21 04:25] LABS: Bilirubin, Total 1.6 mg/dL (0.2-1.0); Total Protein 5.4 g/dL (6.4-8.2)
--- NOTE | 2019-05-21 06:54 | NUR ---
ELIMINATION WITH ASSISTANCE, PT HAD A MODERATE AMOUNT OF DARK BROWN JELLY LIKE FORMED BM.
--- NOTE | 2019-05-21 07:30 | NUR ---
DR. GROSS HERE TO SEE PATIENT. SEE MD NOTES AND EMR FOR ANY NEW ORDERS.
--- NOTE | 2019-05-21 08:30 | NUR ---
DAUGHTER ALYSSA AT BEDSIDE REQUESTING TO SPEAK WITH ANCEL[facility]. [facility] ICU DIRECTOR MADE AWARE.
[2019-05-21] MEDS ORDERED: cefTRIAXone 1GM/50ML D5W 50 ML IV ONE (08:51)
--- NOTE | 2019-05-21 09:00 | NUR ---
DR. BORDEN HERE TO SEE PATIENT. SEE MD NOTES AND EMR FOR ANY NEW ORDERS.
--- NOTE | 2019-05-21 09:12 | NUR ---
HOSPITAL PHARMACIST CALLED AND STATED PATIENT WILL HAVE PACEMAKER PLACED TODAY BY DR. PATEL TOWARDS END OF DAY.
[2019-05-21] MEDS: CEFTRIAXONE SODIUM 2 GM in D5W 5% 50 ML IV SCH (09:13)
[2019-05-21] MEDS: PANTOPRAZOLE 40 MG/10 ML VIAL INJ IV SCH ×2 (10:23→22:44)
[2019-05-21] MEDS: FUROSEMIDE 40 MG/4 ML VIAL IV SCH (10:23)
[2019-05-21] MEDS: VANCOMYCIN 1GM/250ML 250 ML IV SCH (10:23)
[2019-05-21] MEDS: SODIUM CHLOR 0.9% PF (SALINE LOCK) 10ML VIAL/SYR IV SCH ×2 (10:23→22:44)
[2019-05-21] MEDS: DIGOXIN 0.125 MG TAB PO SCH (10:24)
[2019-05-21] MEDS: FLUCONAZOLE 100 MG TAB PO SCH (10:25)
[2019-05-21 10:36] LABS: INR 1.43 (0.9-1.15); Partial Thromboplastin Time 35.5 sec (23.64-32.05)
[2019-05-21] MEDS ORDERED: VANCOMYCIN HCL 1000 MG VL ONE (13:49)
[2019-05-21] MEDS ORDERED: fentaNYL CITRATE 100 MCG/2 ML VL ONE (13:50)
[2019-05-21] MEDS ORDERED: ceFAZolin 1GM/50ML 0 ML IV ONE (13:50)
[2019-05-21] MEDS ORDERED: VANCOMYCIN 1GM/250ML 250 ML IV ONE (13:50)
[2019-05-21] MEDS ORDERED: LIDOCAINE 2%HCL (LOCAL ANESTH.) INJ 20ML MDV ONE ×2 (13:50→13:51)
[2019-05-21] MEDS ORDERED: MIDAZOLAM HCL 1MG/1ML-2 ML VIAL ONE (13:50)
--- NOTE | 2019-05-21 13:50 | NUR ---
PATIENT WENT TO [facility] FOR PACEMAKER PLACEMENT.
[2019-05-21] MEDS ORDERED: FUROSEMIDE 20 MG/2 ML VIAL ONE (14:36)
[2019-05-21] MEDS ORDERED: LIDOCAINE W/ EPINEPHRINE 2% INJ 20ML VIAL ONE (14:41)
[2019-05-21] MEDS ORDERED: GELATIN 1 SPONGE SIZE 50 TOP ONE (14:43)
--- NOTE | 2019-05-21 15:26 | NUR ---
PATIENT RETURNED FROM MANUFACTURER AGENT. PATIENT IS DROWSY, NO BLEEDING/HEMATOMA NOTED TO LEFT CHEST AREA SITE IS CLEAN AND DRY. DAUGHTERS BROUGHT INTO ICU UNIT TO SEE PTIENT.
--- NOTE | 2019-05-21 19:30 | NUR ---
Opening Shift Note Assumed care of pt. Resting in bed with no complaints of pain. No bleeding/redness around pacemaker insertion site. Will continue to monitor.
[2019-05-21] MEDS: DOPamine 1600MCG/ML D5W 250 ML IV SCH (22:20)
[2019-05-21] MEDS: ATORVASTATIN 20 MG TAB PO SCH (22:44)
[2019-05-22] VITALS (81 sets, daily range): BP systolic 82–130; BP diastolic 36–90
--- NOTE | 2019-05-22 07:19 | NUR ---
End of shift note Care endorsed to day shift RN. Pt remained stable throughout the night.
--- NOTE | 2019-05-22 07:55 | NUR ---
OPEN NOTE REPORT RECEIVED FROM NOC RN. PATIENT RESTING IN BED ALERT AND ORIENTATED X4 ON 2L NASAL CANULA STATING 100%SPO2. FOR ALL GTT'S AND TITRATIONS SEE IV SPREAD SHEET. PATIENT IS IN ATRIAL FIB AND ON LEVO. PACEMAKER INCISION SITE IS INTACT, NO BLEEDING NOTED PATIENT SELF REPORTED NOT PAINFUL. CHOU CATH INTACT DRAINING TO GRAVITY FREE OF KINKS. FALL AND SAFETY PRECAUTIONS IN PLACE. PLEASE SEE PHYSICAL ASSESSMENT FOR MORE INFORMATION.
--- NOTE | 2019-05-22 08:30 | NUR ---
MD Agata GROSS AT BEDSIDE MD Agata GROSS AT BEDSIDE, UPDATED ON PATIENT STATUS. NO NEW ORDERS RECEIVED.
[2019-05-22] MEDS: CEFTRIAXONE SODIUM 2 GM in D5W 5% 50 ML IV SCH (09:28)
[2019-05-22] MEDS: VANCOMYCIN 1GM/250ML 250 ML IV SCH (10:20)
[2019-05-22] MEDS: SODIUM CHLOR 0.9% PF (SALINE LOCK) 10ML VIAL/SYR IV SCH ×2 (10:20→23:07)
[2019-05-22] MEDS: FUROSEMIDE 40 MG/4 ML VIAL IV SCH (10:20)
[2019-05-22] MEDS: DIGOXIN 0.125 MG TAB PO SCH (10:21)
[2019-05-22] MEDS: PANTOPRAZOLE 40 MG/10 ML VIAL INJ IV SCH ×2 (10:24→22:00)
[2019-05-22] MEDS: FLUCONAZOLE 100 MG TAB PO SCH (10:24)
--- NOTE | 2019-05-22 11:41 | NUR ---
SPOKE WITH ALLI FROM [facility] AND LET HER KNOW THAT PATIENT DOESN'T WANT TO BE TRANSFERRED TO [facility] AT THIS TIME. UPDATE ON PATIENTS CONDITION GIVEN. ALLI GOTTLIEB CM STATES THAT WHEN PATIENT IS DISCHARGED THAT IF A HOME HEALTH RN VISIT IS REQUESTED THEN AN RN WILL COME OUT AND EDUCATE PATIENT ON NEW DIET AND MEDICATIONS.
[2019-05-22] MEDS: NOREPINEPHRINE 8 MG/250ML KIT 250 ML IV SCH (16:15)
--- NOTE | 2019-05-22 16:31 | NUR ---
PLACED PAGE FOR MD PATINO RECEIVED PATHOLOGY REPORT FROM LATANYA FUNES MD OFFICE, CALL OUT TO MD PATINO. WAITING CALL BACK.
--- NOTE | 2019-05-22 17:13 | NUR ---
RECEIVED CALL FROM [facility] CALLED ASKING IF PATIENT IS REFUSING TRANSFER. INFORMED ROMANCE THAT PATIENT IS STILL REFUSING TO TRANSFER.
--- NOTE | 2019-05-22 21:00 | NUR ---
RECEIVED REPORT FROM IRONWORKER HELPER SHOP
--- NOTE | 2019-05-22 21:00 | NUR ---
Report given to MARILIA Cleary. Pt being transferred to tele floor.
--- NOTE | 2019-05-22 21:20 | NUR ---
ICU Transfer to room 248-A Received pt from ICU in stable cond. Pt oriented to room and procedures and POC discussed with pt. PT verbalizes understanding. Pt is alert and oriented x4. Pt with a left arm sling/immobilizer and left chest surgical drsg/site is cdi with no redness or swelling. Right arm is with edema 1+ non pitting. Lungs are clear and abd is soft non tender. VSS- see vs record. Tele box 30 in afib and occ paced. Pt encouraged to call for assist prn. Bed is low, wheels are locked, and call light is with in reach. Bed alarm is set for pt safety. Addendum: 05/23/19 at 0308 by DARREL CONTRERAS RN also Man cath to gravity draining cloudy yellow urine. placed on 05/16/19 for accurate measurement of I&O's.
--- NOTE | 2019-05-22 23:00 | NUR ---
PROTONIX SCHEDULED FOR 2199 NOT FOUND AND GLOBAL SEARCH MADE AND STILL NONE FOUND.
[2019-05-22] MEDS: ATORVASTATIN 20 MG TAB PO SCH (23:07)
--- NOTE | 2019-05-23 | NUR ---
CALLED INDUSTRIAL ECOLOGIST AND ASKED IF POSSIBLY PTS PROTONIX IN PYXIS CASSETTE AND RN STATES THAT YES SHE WILL SEND VIA BULLET SYSTEM.
[2019-05-23] MEDS: PANTOPRAZOLE 40 MG/10 ML VIAL INJ IV SCH ×3 (00:20→22:29)
[2019-05-23 05:00] VITALS: BP 115/53
--- NOTE | 2019-05-23 07:30 | NUR ---
Opening Shift Note Assumed care of patient, awake and alert. No S/S of distress/SOB or pain. Instructed on POC and to call for assist PRN, will continue to monitor for changes Q1hr and PRN.
--- NOTE | 2019-05-23 07:45 | NUR ---
Dressing to left upper chest dry and intact. No redness or swelling noted. Sling to left arm. Will continue to monitor.
--- NOTE | 2019-05-23 08:15 | NUR ---
Dr. Agata Fan in to see patient as hospitalist.
[2019-05-23 09:00] VITALS: BP 109/45
--- NOTE | 2019-05-23 09:20 | NUR ---
Patient ambulated to bathroom with mod assist. Tolerated well.
[2019-05-23] MEDS: CEFTRIAXONE SODIUM 2 GM in D5W 5% 50 ML IV SCH (09:57)
[2019-05-23] MEDS: SODIUM CHLOR 0.9% PF (SALINE LOCK) 10ML VIAL/SYR IV SCH ×2 (10:00→22:29)
[2019-05-23] MEDS: DIGOXIN 0.125 MG TAB PO SCH (10:07)
[2019-05-23] MEDS: FLUCONAZOLE 100 MG TAB PO SCH (10:07)
[2019-05-23] MEDS: FUROSEMIDE 40 MG/4 ML VIAL IV SCH (10:07)
[2019-05-23 13:00] VITALS: BP 112/57
--- NOTE | 2019-05-23 13:27 | NUR ---
Patient's daughter, Antonieta, at bedside. She is concerned that patient is not on an anticoagulant. Dr. Fan in to see patient. He spoke with patient and her daughter, Antonieta. He explained that patient needs to be off anticoagulant for 7 days as she had a GI bleed when she was admitted. He informed the patient that she will probably be discharged on Saturday.
--- NOTE | 2019-05-23 15:35 | NUR ---
Dr. Fan informed that Emre in Pharmacy is recommending the Vanco be discontinued. Order received to DC Vanco IV.
[2019-05-23 17:02] VITALS: BP 117/54
[2019-05-23 22:00] VITALS: BP 109/51
[2019-05-23] MEDS: ATORVASTATIN 20 MG TAB PO SCH (22:00)
[2019-05-24 05:33] VITALS: BP 101/51
--- NOTE | 2019-05-24 08:20 | NUR ---
Offered to help patient eat her breakfast. She states her daughter will be here in a few minutes and help her eat. Call light in reach. Will continue to monitor.
[2019-05-24 09:18] VITALS: BP 125/53
[2019-05-24] MEDS: PANTOPRAZOLE 40 MG/10 ML VIAL INJ IV SCH ×2 (09:37→22:16)
[2019-05-24] MEDS: FLUCONAZOLE 100 MG TAB PO SCH (09:37)
[2019-05-24] MEDS: FUROSEMIDE 40 MG/4 ML VIAL IV SCH (09:37)
[2019-05-24] MEDS: CEFTRIAXONE SODIUM 2 GM in D5W 5% 50 ML IV SCH (09:37)
[2019-05-24] MEDS: SODIUM CHLOR 0.9% PF (SALINE LOCK) 10ML VIAL/SYR IV SCH ×2 (09:38→22:17)
[2019-05-24] MEDS: DIGOXIN 0.125 MG TAB PO SCH (09:38)
[2019-05-24 13:00] VITALS: BP 129/68
--- NOTE | 2019-05-24 15:26 | NUR ---
Received call from [facility]. She was updated on patient's condition and latest vital signs.
--- NOTE | 2019-05-24 16:07 | NUR ---
Patient ambulated in salas with PT. Tolerated well.
[2019-05-24 17:23] VITALS: BP 110/48
--- NOTE | 2019-05-24 19:15 | NUR ---
OPEN SHIFT NOTE PATIENT IS ALERT AND ORIENTED X4, ON ROOM AIR, MIDLINE PLACED IN THE LEFT UPPER ARM IS INTACT AND PATENT. DAUGHTER IS AT BEDSIDE. POC DISCUSSED AND QUESTIONS ANSWERED. BED IS LOCKED IN LOWEST POSITION WITH SIDE RAILS UP X2 FOR SAFETY. CALL LIGHT IS WITHIN REACH AND PATENT IS ENCOURAGED TO CALL IF NEEDS ANYTHING. WILL CONTINUE TO ROUND Q1HR AND PRN.
--- NOTE | 2019-05-24 20:00 | NUR ---
PATIENT AMBULATED DOWN THE IBARRA WITH RN AND DAUGHTER. PATIENT TOLERATED WELL.
[2019-05-24 22:01] VITALS: BP 116/59
[2019-05-24] MEDS: ATORVASTATIN 20 MG TAB PO SCH (22:17)
[2019-05-25 05:48] VITALS: BP 124/53
--- NOTE | 2019-05-25 08:20 | NUR ---
OPENING SHIFT NOTE ASSUMED CARE OF PATIENT. ALERT AND ORIENTED X4 WITH NO SIGNS OF DISTRESS. LUNG SOUNDS CLEAR ON ROOM AIR. CALL LIGHT WITHIN REACH AND INSTRUCTED TO CALL FOR ASSISTANCE. WILL CONTINUE TO MONITOR.
[2019-05-25 09:00] VITALS: BP 137/46
[2019-05-25] MEDS: CEFTRIAXONE SODIUM 2 GM in D5W 5% 50 ML IV SCH (10:45)
[2019-05-25] MEDS: PANTOPRAZOLE 40 MG/10 ML VIAL INJ IV SCH (10:45)
[2019-05-25] MEDS: FUROSEMIDE 40 MG/4 ML VIAL IV SCH (10:47)
[2019-05-25] MEDS: FLUCONAZOLE 100 MG TAB PO SCH (10:48)
[2019-05-25] MEDS: DIGOXIN 0.125 MG TAB PO SCH (10:53)
[2019-05-25] MEDS: SODIUM CHLOR 0.9% PF (SALINE LOCK) 10ML VIAL/SYR IV SCH (11:01)
[2019-05-25 13:00] VITALS: BP 117/52
--- NOTE | 2019-05-25 14:30 | NUR ---
faxed ss order and d/c order to [facility]
[2019-05-25 14:40] VITALS: BP 117/52
--- NOTE | 2019-05-25 15:03 | NUR ---
Fuentes Steven at [facility], she will set up P.T./safety eval for pt . Pt can go home from CM point of view.
--- NOTE | 2019-05-25 15:27 | NUR ---
Nutrition Consult Note Pt and fly. edu on diet for diverticulosis. verbalized understanding
--- NOTE | 2019-05-25 16:30 | NUR ---
scientific research manager at bed side to talk to pt, as per therapeutic case manager chandana will arrange home health and for the medical equipment, ok to d/c pt.
--- NOTE | 2019-05-25 16:33 | NUR ---
ellington analysis and [facility] nurse on the phone to inquire on the d/c time for pt, as per [facility] nurse pt will be see by pcp and assess pacemaker dressing and incision site, Delia [employer] will send an email to pt's pcp letting her know that pt had a pacemaker placement and needs to f/u with gullet slitter, pt and daughter informed.
--- NOTE | 2019-05-25 17:20 | NUR ---
Discharge instructions given as ordered. Encourage to follow up with PMD as instructed. All questions and concerns addressed. Patient verbalized understanding. Medication reconciliation form completed and copy given to patient. No home medications held in Pharmacy, and no needed vaccines to be given. IV removed with catheter intact, pressure dressing applied, goss catheter removed. Telemetry unit returned to [facility].
--- NOTE | 2019-05-25 17:50 | NUR ---
Patient taken to vehicle via wheelchair with all personal belongings, accompanied by staff and family member. No distress noted at time of departure.
== END 2019-05-25 17:45 | disposition home health service (06) | DRG 853 ==
LOC: ER 14:01 → TELE 14:02 → ICU WEST 17:35 → TELE-EAST 05-22 21:32
PROVIDERS: ADMIT Internal Medicine; ATTEND Family Medicine
PROC: 30233N1 Transfusion of Nonautologous Red Blood Cells into Peripheral Vein, Percutaneous Approach (ICD-10-PCS; 2019-05-16)
PROC: 30233K1 Transfusion of Nonautologous Frozen Plasma into Peripheral Vein, Percutaneous Approach (ICD-10-PCS; principal; 2019-05-17)
PROC: 02HV33Z Insertion of Infusion Device into Superior Vena Cava, Percutaneous Approach (ICD-10-PCS; 2019-05-17)
PROC: 0DBL8ZZ Excision of Transverse Colon, Via Natural or Artificial Opening Endoscopic (ICD-10-PCS; 2019-05-19)
PROC: 0JH606Z Insertion of Pacemaker, Dual Chamber into Chest Subcutaneous Tissue and Fascia, Open Approach (ICD-10-PCS; 2019-05-21)
PROC: 02HK3JZ Insertion of Pacemaker Lead into Right Ventricle, Percutaneous Approach (ICD-10-PCS; 2019-05-21)
PROC: 02H63JZ Insertion of Pacemaker Lead into Right Atrium, Percutaneous Approach (ICD-10-PCS; 2019-05-21)
DX: A41.51 Sepsis due to Escherichia coli [E. coli] (principal); I50.43 Acute on chronic combined systolic (congestive) and diastolic (congestive) heart failure; J18.1 Lobar pneumonia, unspecified organism; R65.21 Severe sepsis with septic shock; E43 Unspecified severe protein-calorie malnutrition; K57.31 Diverticulosis of large intestine without perforation or abscess with bleeding; J91.8 Pleural effusion in other conditions classified elsewhere; D68.59 Other primary thrombophilia; I13.0 Hypertensive heart and chronic kidney disease with heart failure and stage 1 through stage 4 chronic kidney disease, or unspecified chronic kidney disease; D62 Acute posthemorrhagic anemia; N17.9 Acute kidney failure, unspecified; B37.89 Other sites of candidiasis; I49.5 Sick sinus syndrome; D69.6 Thrombocytopenia, unspecified; E78.00 Pure hypercholesterolemia, unspecified; I48.0 Paroxysmal atrial fibrillation; Z60.2 Problems related to living alone; D12.3 Benign neoplasm of transverse colon; N18.3 Chronic kidney disease, stage 3 (moderate); K64.4 Residual hemorrhoidal skin tags; Z79.01 Long term (current) use of anticoagulants; Z85.07 Personal history of malignant neoplasm of pancreas; Z90.411 Acquired partial absence of pancreas; Z92.21 Personal history of antineoplastic chemotherapy; Z92.3 Personal history of irradiation; Z85.3 Personal history of malignant neoplasm of breast; Z79.899 Other long term (current) drug therapy; Z68.25 Body mass index [BMI] 25.0-25.9, adult; Z90.710 Acquired absence of both cervix and uterus; Z90.3 Acquired absence of stomach [part of]
CPT/HCPCS: 33208; 36415; 36569; 45385; 71045; 74176; 80053; 80162; 80202; 81001; 82150; 82378; 82550; 83605; 83690; 83735; 83880; 84484; 85014; 85018; 85025; 85045; 85610; 85652; 85730; 86141; 86850; 86900; 86901; 86920; 87040; 87077; 87081; 87086; 87186; 93005; 93971; 96374; 97116; 97163; 97530; 99152; 99153; C1785; C9113; G0378; J0690; J0696; J2250; J7060